=== PATIENT | female | born 1995 | race Caucasian/White ===

== ENCOUNTER 2018-08-07 11:59 | Day surgery (SDC) | payer OTHER ==
[~2018-08-07] VITALS: Ht 160 cm; Wt 123.1 kg
[2018-08-07] VITALS (14 sets, daily range): BP systolic 114–149; BP diastolic 63–86; PULSE 67–94; RESP 13–21; Ht 160 cm; Wt 123.1 kg
--- NOTE | 2018-08-07 13:28 | HPN ---
Date/Time of Note Date/Time of Note DATE: 08/07/18 TIME: 13:28 Interval H&P Admission Note Pt. seen H&P reviewed: No system changes FRANCOISE LOUIS MD August 07, 2018 13:28
[2018-08-07] MEDS ORDERED: DESFLURANE 15 MIN ONE (14:00)
--- NOTE | 2018-08-07 14:05 | PREAC ---
Date/Time of Note Date/Time of Note DATE: 08/07/18 TIME: 14:04 Anesthesia Eval and Record Evaluation Time Pre-Procedure Interview DATE: 08/07/18 TIME: 14:04 Age 22 Sex female NPO: 8 hrs Preoperative diagnosis CHRONIC TONSILLITIS Planned procedure TONSILLECTOMY Past Medical History Past Medical History: Includes GI: Morbid obesity Surgery & Anesthesia Issues No known issue Meds Anticoagulation: No Beta Julius within 24 hr: No Reason Beta Julius not given: Pt. not on B-Julius No Active Prescriptions or Reported Meds Meds reviewed: Yes Allergies Coded Allergies: No Known Drug Allergies (Verified Allergy, Unknown, 08/06/18) Allergies Reviewed: Yes Labs/Studies Labs Reviewed: Reviewed by anesthesiologist test: Negative Pre-procedure Exam Last vitals Vital Signs Date Temp Pulse Resp B/P (MAP) Pulse Ox O2 O2 Flow FiO2 Time Delivery Rate 08/07/18 97.5 67 16 131/63 94 13:03 (85) Airway: Adequate mouth opening, Adequate thyromental dist Mallampati: Mallampati II Teeth: Normal Lung: Normal Heart: Normal ASA Physical Status ASA physical status: 3 Emergency: None Planned Anesthetic General/MAC: ETT Planned Pain Management Parenteral pain med Pre-operative Attestations Prior to commencing anesthesia and surgery, the patient was re-evaluated, there was verification of: *The patient's identity *The results of appropriate recent lab work and preoperative vital signs *The above evaluation not changing prior to induction *Anesthetic plan, risk benefits, alternative and complications discussed with patient/family; questions answered; patient/family understands, accepts and wishes to proceed. Donnie Muñoz M.D. August 07, 2018 14:05
[2018-08-07] MEDS ORDERED: MIDAZOLAM 1 MG/ML 2 ML INJ ONE (14:10)
[2018-08-07] MEDS ORDERED: NEOSTIGMINE 3 MG/3 ML SYRINGE ONE (14:10)
[2018-08-07] MEDS ORDERED: ONDANSETRON 4 MG INJ ONE (14:10)
[2018-08-07] MEDS ORDERED: CEFAZOLIN 1 GM INJ ONE (14:10)
[2018-08-07] MEDS ORDERED: FENTAnyl 50 MCG/ML VIAL ONE (14:10)
[2018-08-07] MEDS ORDERED: ROCURONIUM 50 MG INJ ONE (14:10)
[2018-08-07] MEDS ORDERED: PROPOFOL 20 ML ONE (14:10)
[2018-08-07] MEDS ORDERED: DEXAMETHASONE 4 MG/ML 5 ML INJ ONE (14:10)
[2018-08-07] MEDS ORDERED: GLYCOPYRROLATE 0.4 MG INJ ONE (14:10)
[2018-08-07] MEDS ORDERED: ALBUTEROL 0.083% (NEB) 2.5 MG/3 ML AMP HHN PRN (14:30)
[2018-08-07] MEDS ORDERED: FENTAnyl 50 MCG/ML VIAL IV PRN ×3 (14:30)
[2018-08-07] MEDS ORDERED: IPRATROPIUM (NEB) 0.5 MG/2.5 ML AMP HHN PRN (14:30)
[2018-08-07] MEDS ORDERED: ONDANSETRON 4 MG INJ IV PRN (14:30)
[2018-08-07] MEDS ORDERED: EPHEDrine 25 MG/5 ML SYG IV PRN (14:30)
[2018-08-07] MEDS ORDERED: HYDROmorphONE 1 MG/5 ML IV SYRINGE IV PRN ×3 (14:30)
[2018-08-07] MEDS ORDERED: LABETALOL HCL 20MG INJ IV PRN (14:30)
[2018-08-07] MEDS ORDERED: OXYCODONE/ACETAMINOPHEN (5/325) TAB PO PRN ×2 (14:30)
[2018-08-07] MEDS ORDERED: MEPERIDINE 25 MG INJ IV PRN (14:30)
[2018-08-07] MEDS ORDERED: DIPHENHYDRAMINE 50 MG INJ IV PRN (14:30)
[2018-08-07] MEDS ORDERED: TRIMETHOBENZAMIDE 100 MG/ML VIAL IM PRN (14:30)
[2018-08-07] MEDS ORDERED: MIDAZOLAM 1 MG/ML 2 ML INJ IV PRN (14:30)
[2018-08-07] MEDS ORDERED: hydrALAzine 20 MG INJ IV PRN (14:30)
[2018-08-07] MEDS ORDERED: SUGAMMADEX SODIUM 200 MG/2 ML VIAL IV ONE (14:41)
--- NOTE | 2018-08-07 15:01 | PAC ---
Date/Time of Note Date/Time of Note DATE: 08/07/18 TIME: 15:01 Post-Anesthesia Notes Post-Anesthesia Note Last documented vital signs Vital Signs Date Temp Pulse Resp B/P (MAP) Pulse Ox O2 O2 Flow FiO2 Time Delivery Rate 08/07/18 97.5 67 16 131/63 94 13:03 (85) Activity: WNL Respiratory function: WNL Cardiovascular function: WNL Mental status: Baseline Pain reasonably controlled: Yes Hydration appropriate: Yes Nausea/Vomiting absent: Yes Donnie Muñoz M.D. August 07, 2018 15:01
--- NOTE | 2018-08-07 15:06 | OPR ---
Date/Time of Note Date/Time of Note DATE: 08/07/18 TIME: 15:04 Operative Report Procedure Date: August 07, 2018 Preoperative Diagnosis Chronic and recurrent tonsillitis. Postoperative Diagnosis Same Operation/Procedure Performed Tonsillectomy. Surgeon see signature line Director External Communications None Anesthesia Type: general Estimated Blood Loss: minimal Transfusion none Specimen Tonsils Grafts/Implants none Complications none Pt Condition Post Procedure: stable Disposition: PACU Indications Recurrent infections. Procedure Description Description of procedure: The patient was identified in the holding area. We had a discussion to confirm understanding of all indications risks benefits alternatives and postoperative care associated with the operation. The patient signed informed consent was taken to the operating room. The patient was laid supine on the operating room table and general anesthesia was achieved without difficulty. The face was draped in sterile fashion. A McIvor mouth gag was placed and used to retract the oral cavity open, taking care to avoid damage to the teeth. The oral cavity and pharynx were inspected and palpated to reveal symmetric hypertrophy. At this point the right palatine tonsil was grabbed superiorly with a curved Jennifer clamp. It was retracted medially and monopolar cautery was used to enter the peritonsillar space. Dissection of the tonsil commenced in a superior to inferior fashion until it was completely resected. Suction Bovie cautery was used for spot hemostasis. At this point, the contralateral tonsil was removed in the exact similar fashion. There was no significant bleeding or oozing. Copious irrigation and suctioning was performed. Secondary inspection revealed no bleeding or oozing. The patient was awakened, extubated and taken to the PACU in stable condition. Complications: None FRANCOISE LOUIS MD August 07, 2018 15:06
[2018-08-07] MEDS ORDERED: morphine 2 MG INJ IV PRN (15:30)
[2018-08-08] MEDS ORDERED: AZIT200S49 PO (19:41)
[2018-08-08] MEDS ORDERED: CHLO473M4 MM (19:41)
[2018-08-08] MEDS ORDERED: HYDR-3980 PO (19:41)
== END 2018-08-07 16:55 | disposition home or self-care (01) ==
LOC: SDS 11:59
PROVIDERS: ATTEND Otolaryngology
DX: J35.01 Chronic tonsillitis (principal); E66.01 Morbid (severe) obesity due to excess calories
CPT/HCPCS: 42826; 88304; J0690; J1100; J2250; J2405; J2710; J3010; Z7512; Z7610

== ENCOUNTER 2018-08-08 17:56 | Emergency (ER) | payer OTHER ==
[~2018-08-08] VITALS: Wt 122.7 kg
[2018-08-08] MEDS ORDERED: HYDR-3980 PO (19:41)
[2018-08-08] MEDS ORDERED: CHLO473M4 MM (19:41)
[2018-08-08] MEDS ORDERED: AZIT200S49 PO (19:41)
--- NOTE | 2018-08-08 19:45 | ERD ---
ER Documentation Chief Complaint Chief Complaint p tonscillectomy yest; throat pain. last tylenol #3@ 1300. HPI This is a 22 erythema on her tonsils all yesterday and she is complaining of some pain to the throat. No bleeding no fever, she feels like she might have an infection. She is able to tolerate soft solids and liquids no neck swelling ROS All systems reviewed and are negative except as per history of present illness. Medications Home Meds Active Scripts Chlorhexidine Gluconate (Peridex) 473 Ml Mouthwash, 15 ML MM BID for 7 Days, BOTTLE Prov:ZHOUKATIASHLOMO DO 08/08/18 Hydrocodone/Acetaminophen (Lyford 10-325 Tablet) 1 Each Tablet, 1 TAB PO Q6H PRN for PAIN, #16 TAB Prov:SHLOMO BAIG DO 08/08/18 Azithromycin* (Azithromycin*) 200 Mg/5 Ml Susp.recon, 500 MG PO DAILY, #1 BOTTLE 500MG DAY 1 THEN 250 MG DAY 2-5 Prov:SHLOMO BAIG DO 08/08/18 Allergies Allergies: Coded Allergies: No Known Drug Allergies (Verified Allergy, Unknown, 08/06/18) PMhx/Soc Medical and Surgical Hx: pt denies Medical Hx History of Surgery: Yes (gall bladder, TONSILECTOMY 2019) Anesthesia Reaction: No Hx Neurological Disorder: No Hx Respiratory Disorders: No Hx Cardiac Disorders: No Hx Psychiatric Problems: No Hx Miscellaneous Medical Probl: No Hx Alcohol Use: No Hx Substance Use: No Hx Tobacco Use: No Smoking Status: Never smoker FmHx Family History: No coronary disease Physical Exam Vitals Vital Signs Date Temp Pulse Resp B/P (MAP) Pulse Ox O2 O2 Flow FiO2 Time Delivery Rate 08/08/18 98.3 60 18 108/63 100 Room Air 18:50 (78) 08/08/18 97.8 60 18 129/79 99 18:04 (96) Physical Exam Const: Well-developed, well-nourished Head: Atraumatic, normocephalic Eyes: Normal Conjunctiva, PERRLA, EOMI, normal sclera, no nystagmus ENT: Normal External Ears, Nose and Mouth, postop granulation tissue bilaterally with surrounding erythema possibly suggestive of an early infection Neck: Full range of motion. No meningismus, no lymphadenopathy. Resp: Clear to auscultation bilaterally, no wheezing, rhonchi, rales Cardio: Regular rate and rhythm, no murmurs, S1 S2 present Abd: Soft, non tender x 4, non distended. Normal bowel sounds, no guarding or rebound, no pulsitile abdominal masses or bruits Skin: No petechiae or rashes, no ecchymosis , no maculopapular rash Back: No midline or flank tenderness Ext: No cyanosis, or edema, FROM x 4, normal inspection, neurovascularly intact x 4 Neur: Awake and alert, STR 5/5 x 4, sensation intact x 4, no focal findings, cerebellum intact Psych: Normal Mood and Affect Procedures/MDM We will treat with Zithromax, Peridex and Lyford. Departure Diagnosis: Primary Impression: Pharyngitis Pharyngitis/tonsillitis etiology: unspecified etiology Qualified Codes: J02.9 - Acute pharyngitis, unspecified Condition: Stable Patient Instructions: Pharyngitis, Strep (Presumed) SHLOMO BAIG DO August 08, 2018 19:45
[2018-08-08 20:38] VITALS: BP 110/72; PULSE 59; RESP 18
== END 2018-08-08 20:40 | disposition home or self-care (01) ==
LOC: E/R 17:56
DX: J02.9 Acute pharyngitis, unspecified (principal)
CPT/HCPCS: 99283